=== PATIENT | male | born 1935 | race Caucasian/White ===

== ENCOUNTER 2020-10-05 14:21 | Emergency (ER) | payer OTHER ==
[~2020-10-05] VITALS: Ht 177.8 cm; Wt 81.7 kg
[~2020-10-05 14:21] MED LIST: FISH OIL 1,001000 M2 PO; IBUPROFEN 200200 M1 PO; LISINOPRIL20 MG PO; METFORMIN HCL500 MG PO; NEXIUM40 MG PO; PERCOCET PO; TENORMIN50 MG PO; XARELTO20 MG PO
[2020-10-05] MEDS ORDERED: HYDROCHLOROTHIA25 M1 PO (14:37)
[2020-10-05] MEDS ORDERED: CARVEDILOL25 MG PO (14:38)
[2020-10-05] MEDS ORDERED: COQ-1030 MG PO (14:38)
[2020-10-05] MEDS ORDERED: SIMVASTATIN80 MG PO (14:38)
[2020-10-05] MEDS ORDERED: AMARYL4 MG PO (14:39)
[2020-10-05 16:03] LABS: URINE BILIRUBIN NEGATIVE (Negative); URINE BLOOD NEGATIVE (Negative); URINE CLARITY CLEAR; URINE COLOR YELLOW; URINE GLUCOSE-RANDOM NEGATIVE (Negative); URINE KETONES NEGATIVE (Negative); URINE LEUKOCYTES-REFLEX NEGATIVE (Negative); URINE NITRITE-REFLEX NEGATIVE (Negative); URINE PROTEIN NEGATIVE (Negative); URINE UROBILINOGEN 0.2 E.U./dl (0.2-1.0)
[2020-10-05 16:12] LABS: AMP/METHAMP Negative (Negative); BARBITURATES Negative (Negative); BENZODIAZEPINES Negative (Negative); COCAINE Negative (Negative); METHADONE Negative (Negative); OPIATES POSITIVE (Negative); PCP Negative (Negative); THC Negative (Negative)
[2020-10-05 16:14] LABS: ABSOLUTE EOSINOPHILS 0.2 thou/uL (0.0-0.7); ABSOLUTE LYMPHOCYTES 1.7 thou/uL (0.8-5.3); ABSOLUTE MONOCYTES 0.6 thou/uL (0.0-1.2); BASOPHILS 0.4 %; EOSINOPHILS 1.7 %; HEMATOCRIT 41.1 % (42.0-52.0); HEMOGLOBIN 13.8 gm/dL (14.0-18.0); LYMPHOCYTES 17.8 %; MCH 28.6 pg (26.0-34.0); MCHC 33.7 g/dL (28.0-37.0); MCV 84.9 fL (80.0-100.0); MONOCYTES 6.6 %; NUCLEATED RBCS 0 /100WBC; PLATELET COUNT* 298 thou/uL (150-400); POLYS 73.5 %; RBC 4.84 mil/uL (4.50-6.00); RDW-CV 14.1 % (10.5-14.5); WBC 9.5 thou/uL (4.0-11.0)
[2020-10-05 16:20] LABS: CALCIUM 10.2 mg/dL (8.5-10.1); CREATININE 1.2 mg/dL (0.6-1.3); POTASSIUM 4.9 mmol/L (3.5-5.1)
[2020-10-05 16:24] LABS: ALBUMIN 4.5 g/dL (3.4-5.0); TOTAL BILIRUBIN 0.5 mg/dL (<0.1-1.0); TOTAL PROTEIN 8.1 g/dL (6.4-8.2)
[2020-10-05] MEDS ORDERED: XANAX 0.25 MG0.25 MG PO ×2 (16:37→16:38)
[2020-10-05 16:43] VITALS: BP 146/112
--- NOTE | 2020-10-06 09:16 | EKG ---
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[id number] Requested By: Olayinka Trivedi Order Number: [id number] MD: Hugo Cowan Measurements Intervals [place] Rate: 83 P: [place]: QRS: -54 QRSD: 107 T: 52 QT: 362 QTc: 426 Interpretive Statements Atrial fibrillation LAD, 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
== END 2020-10-05 16:44 | disposition home or self-care (01) ==
LOC: M.ERS 14:21
PROVIDERS: Physician Assistant
DX: F41.9 Anxiety disorder, unspecified (principal); I48.91 Unspecified atrial fibrillation; E11.9 Type 2 diabetes mellitus without complications; I10 Essential (primary) hypertension; Z87.891 Personal history of nicotine dependence; Z79.899 Other long term (current) drug therapy